=== PATIENT | female | born 1960 | race African-American/Black ===

== ENCOUNTER 2018-02-01 08:29 | Emergency (ER) | payer MEDICAID ==
[~2018-02-01] VITALS: Ht 170.2 cm; Wt 82.0 kg
[2018-02-01 08:40] VITALS: BP 165/87
[2018-02-01] MEDS ORDERED: IBUPROFEN 800MG TABLET PO ONE (12:45)
[2018-02-01] MEDS ORDERED: SODIUM CHLORIDE 0.9% 1,000 ML IV ONE (13:00)
== END 2018-02-01 13:08 | disposition left against medical advice (07) ==
LOC: ER 08:49
DX: R10.13 Epigastric pain (principal); I10 Essential (primary) hypertension
CPT/HCPCS: 99281; J7030